=== PATIENT | female | born 1980 | race Caucasian/White ===

== ENCOUNTER → 2019-10-13 | Outpatient (CLI) | payer OTHER ==
--- NOTE | 2019-10-13 11:02 | MM ---
Reason for exam: screening (asymptomatic). Baseline mammogram. History: Family history of breast cancer in mother and breast cancer in maternal grandmother. Physical Findings: Nurse did not find any significant physical abnormalities on exam. MG 3D Screening Mammo W/Cad Bilateral CC and MLO view(s) were taken. The breast tissue is heterogeneously dense. This may lower the sensitivity of mammography. 1cm nodular asymmetry may persist on 3D images medial left breast. Other areas of asymmetric densities do not persist on 3D images. These results were verbally communicated with the patient and result sheet given to the patient on 10/13/19. ASSESSMENT: Incomplete: need additional imaging evaluation, BI-RAD 0 RECOMMENDATION: Ultrasound of the left breast. (medial 6-12 o'clock)
--- NOTE | 2019-10-13 11:04 | USB ---
Reason for exam: additional evaluation requested from abnormal screening. History: Family history of breast cancer in mother and breast cancer in maternal grandmother. Physical Findings: Breast exam preformed at baseline screening. US Breast Workup Limited LT Left limited breast ultrasound including focal area of concern, retroareolar and axilla demonstrates a 0.5 x 0.3 x 0.5cm mixed lesion at 7 o'clock, a 1.0 x 0.7 x 0.8cm cystic lesion at 8 o'clock, likely corresponds to the mammographic nodule and a 0.4 x 0.2 x 0.5cm cystic lesion at 8 o'clock. 1 year follow up recommended. Scanned 6-12 o'clock. These results were verbally communicated with the patient and result sheet given to the patient on 10/13/19. ASSESSMENT: Probably benign, BI-RAD 3 RECOMMENDATION: Follow-up diagnostic mammogram of both breasts in 1 year.
== END | disposition home or self-care (01) ==
LOC: RADMAMWWP 08:12
PROVIDERS: ATTEND Obstetrics & Gynecology
DX: Z12.31 Encounter for screening mammogram for malignant neoplasm of breast (principal); R91.8 Other nonspecific abnormal finding of lung field
CPT/HCPCS: 77063; 77067

== ENCOUNTER → 2020-11-23 | Outpatient (CLI) | payer OTHER ==
--- NOTE | 2020-11-23 08:43 | MM ---
Reason for exam: additional evaluation requested from abnormal screening. Last mammogram was performed 1 year and 1 month ago. History: Family history of breast cancer in mother and breast cancer in maternal grandmother. Physical Findings: Nurse did not find any significant physical abnormalities on exam. MG 3D Diag Mammo W/Cad STEFANIE Bilateral CC, MLO, and XCCL view(s) were taken. Prior study comparison: October 13, 2019, bilateral MG 3d screening mammo w/cad. The breast tissue is extremely dense which could obscure a lesion on mammography. No significant new findings when compared with previous films. These results were verbally communicated with the patient and result sheet given to the patient on 11/23/20. ASSESSMENT: Benign, BI-RAD 2 RECOMMENDATION: Routine screening mammogram of both breasts in 1 year.
== END | disposition home or self-care (01) ==
LOC: RADMAMWWP 07:01
PROVIDERS: ATTEND Obstetrics & Gynecology
DX: R92.8 Other abnormal and inconclusive findings on diagnostic imaging of breast (principal)
CPT/HCPCS: 77062; 77066

== ENCOUNTER → 2021-12-30 | Outpatient (CLI) | payer SELFPAY ==
--- NOTE | 2021-12-30 08:57 | MM ---
Reason for exam: clinical finding. Last mammogram was performed 1 year and 1 month ago. History: Family history of breast cancer in mother at age 64 and breast cancer in maternal grandmother at age 60. Indicated problem(s): palpable abnormality in the left breast. Physical Findings: Nurse Summary: 1cm nodule in the left breast at 1 and 2 o'clock (nurse mj). MG 3D Diag Mammo W/Cad STEFANIE Bilateral CC and MLO view(s) were taken. Prior study comparison: November 23, 2020, bilateral MG 3d diag mammo w/cad STEF[facility]IE. October 13, 2019, bilateral MG 3d screening mammo w/cad. The breast tissue is heterogeneously dense. This may lower the sensitivity of mammography. There is no discrete abnormality including area of concern. Ultrasound recommended. These results were verbally communicated with the patient and result sheet given to the patient on 12/30/21. ASSESSMENT: Incomplete: need additional imaging evaluation, BI-RAD 0 RECOMMENDATION: Ultrasound of the left breast. Manage patient on a clinical basis.
--- NOTE | 2021-12-30 08:59 | USB ---
Reason for exam: additional evaluation requested from abnormal screening. History: Family history of breast cancer in mother at age 64 and breast cancer in maternal grandmother at age 60. US Breast Limited LT Left limited breast ultrasound including focal area of concern, retroareolar and axilla demonstrates a 0.6 x 0.5 x 0.5cm cystic cluster at 2 o'clock and a 0.9 x 0.7 x 1.0cm cystic lesion at 2 o'clock. These results were verbally communicated with the patient and result sheet given to the patient on 12/30/21. ASSESSMENT: Benign, BI-RAD 2 RECOMMENDATION: Routine screening mammogram of both breasts in 1 year. Manage patient on a clinical basis.
== END | disposition home or self-care (01) ==
LOC: RADMAMWWP 07:30
PROVIDERS: ATTEND Obstetrics & Gynecology
DX: N63.0 Unspecified lump in unspecified breast (principal); Z80.3 Family history of malignant neoplasm of breast
CPT/HCPCS: 77062; 77066

== ENCOUNTER → 2023-02-07 | Outpatient (CLI) | payer BC ==
--- NOTE | 2023-02-07 18:25 | MM ---
Reason for Exam: Screening (asymptomatic). Last mammogram was performed 1 year(s) and 1 month(s) ago. Patient History: Menarche at age 14. First Full-Term at age 25. Premenopausal. Maternal grandmother had breast cancer, age 60. Mother had breast cancer, age 64. Last menstrual period: 01/23/2023 Risk Values: Shruthi 5 year model risk: 1.2%. NCI Lifetime model risk: 18.2%. Prior Study Comparison: 10/13/2019 Bilateral Screening Mammogram, [facility]. 11/23/2020 Bilateral Diagnostic Mammogram, [facility]. 12/30/2021 Bilateral Diagnostic Mammogram, [facility]. Tissue Density: The breast tissue is heterogeneously dense. This may lower the sensitivity of mammography. Findings: Analyzed By CAD. There is no suspicious group of microcalcifications or new suspicious mass in either breast. Overall Assessment: Negative, BI-RAD 1 Management: Screening Mammogram of both breasts in 1 year. 1. Patient should continue monthly self breast exams. 2. A clinical breast exam by your physician is recommended on an annual basis. 3. This exam should not preclude additional follow-up of suspicious palpable abnormalities. Electronically signed and approved by: Gorge Restrepo M.D. Radiologist
== END | disposition home or self-care (01) ==
LOC: RADMAMWWP 07:28
PROVIDERS: ATTEND Obstetrics & Gynecology
DX: Z12.31 Encounter for screening mammogram for malignant neoplasm of breast (principal); Z80.3 Family history of malignant neoplasm of breast
CPT/HCPCS: 77063; 77067

== ENCOUNTER → 2024-03-12 | Outpatient (CLI) | payer BC ==
--- NOTE | 2024-03-13 18:56 | MM ---
Reason for Exam: Screening (asymptomatic). Last mammogram was performed 1 year(s) and 1 month(s) ago. Patient History: Menarche at age 14. First Full-Term at age 25. Premenopausal. Maternal grandmother had breast cancer, age 60. Mother had breast cancer, age 64. Last menstrual period: 02/27/2024 Risk Values: Shruthi 5 year model risk: 1.3%. NCI Lifetime model risk: 18.0%. Prior Study Comparison: 11/23/2020 Bilateral Diagnostic Mammogram, [facility]. 12/30/2021 Bilateral Diagnostic Mammogram, [facility]. 02/07/2023 Bilateral MG 3D screening mammo w/cad, [facility]. Tissue Density: The breasts are heterogeneously dense, which may obscure small masses. Findings: Analyzed By CAD. Focal asymmetry posterior 12:00 left breast may represent superimposition shadow. It is more defined and further evaluation is recommended. Otherwise, no significant change. Overall Assessment: Incomplete: need additional imaging evaluation, BI-RAD 0 Management: Special View Mammogram of the left breast. Diagnostic Breast Ultrasound of the left breast. . [facility] will attempt to contact patient to return for supplemental views and ultrasound if indicated. Electronically signed and approved by: Gorge Restrepo M.D. Radiologist
== END | disposition home or self-care (01) ==
LOC: RADMAMWWP 06:54
PROVIDERS: ATTEND Obstetrics & Gynecology
DX: Z12.31 Encounter for screening mammogram for malignant neoplasm of breast (principal); Z80.3 Family history of malignant neoplasm of breast
CPT/HCPCS: 77063; 77067

== ENCOUNTER → 2024-03-18 | Outpatient (CLI) | payer BC ==
--- NOTE | 2024-03-18 10:31 | MM ---
Reason for Exam: Additional evaluation requested from prior study. Last screening mammogram was performed less than 1 month ago. Patient History: Menarche at age 14. First Full-Term at age 25. Premenopausal. Maternal grandmother had breast cancer, age 60. Mother had breast cancer, age 64. Risk Values: Shruthi 5 year model risk: 1.3%. NCI Lifetime model risk: 18.0%. Prior Study Comparison: 12/30/2021 Bilateral Diagnostic Mammogram, [facility]. 02/07/2023 Bilateral MG 3D screening mammo w/cad, [facility]. 03/12/2024 Bilateral MG 3D screening mammo w/cad, [facility]. Tissue Density: Left: The breasts are heterogeneously dense, which may obscure small masses. Findings: Analyzed By CAD. Persistent asymmetric density left 12:00 position 7.6 cm from the nipple measuring approximately 1.4 cm in length. Ultrasound recommended. No additional persistent areas of abnormal density. Overall Assessment: Incomplete: need additional imaging evaluation, BI-RAD 0 Management: Diagnostic Breast Ultrasound of the left breast. . Results were given to the patient verbally at the time of exam. Patient should continue monthly self-breast exams. A clinical breast exam by your physician is recommended on an annual basis. This exam should not preclude additional follow-up of suspicious palpable abnormalities. Note on Shruthi scores and lifetime risk: 1. A Shruthi score greater than 3% is considered moderate risk. If this is the case, consider specialist referral to assess eligibility for a risk reducing agent. 2. If overall lifetime risk for the development of breast cancer is 20% or higher, the patient may qualify for future screening with alternating mammogram and breast MRI. Electronically signed and approved by: Christiano Thapa M.D. Radiologis
--- NOTE | 2024-03-18 10:55 | USB ---
Reason for Exam: Additional evaluation requested from abnormal screening. Patient History: Menarche at age 14. First Full-Term at age 25. Premenopausal. Maternal grandmother had breast cancer, age 60. Mother had breast cancer, age 64. Risk Values: Shruthi 5 year model risk: 1.3%. NCI Lifetime model risk: 18.0%. Technique: Method: Targeted. Prior Study Comparison: 12/30/2021 Bilateral Diagnostic Mammogram, [facility]. 02/07/2023 Bilateral MG 3D screening mammo w/cad, [facility]. 03/12/2024 Bilateral MG 3D screening mammo w/cad, [facility]. Findings: The upper section of the breast of the left breast, the axilla of the left breast and the retroareolar of the left breast were scanned. Electronically signed and approved by: Christiano Thapa M.D. Radiologis
== END | disposition home or self-care (01) ==
LOC: RADMAMWWP 10:03
PROVIDERS: ATTEND Obstetrics & Gynecology
DX: N60.02 Solitary cyst of left breast (principal); R92.332 Mammographic heterogeneous density, left breast; Z80.3 Family history of malignant neoplasm of breast
CPT/HCPCS: 77061; 77065

== ENCOUNTER → 2024-11-14 | Outpatient (CLI) | payer BC ==
--- NOTE | 2024-11-14 08:26 | MM ---
Reason for Exam: Additional evaluation requested from abnormal screening. Last screening mammogram was performed 8 month(s) ago. Patient History: Menarche at age 14. First Full-Term at age 25. Premenopausal. Maternal grandmother had breast cancer, age 60. Mother had breast cancer, age 64. Last menstrual period: 09/03/2024 Risk Values: Shruthi 5 year model risk: 1.4%. NCI Lifetime model risk: 17.9%. Prior Study Comparison: 02/07/2023 Bilateral MG 3D screening mammo w/cad, [facility]. 03/12/2024 Bilateral MG 3D screening mammo w/cad, [facility]. 03/18/2024 Left MG 3D work up w/cad , [facility]. Tissue Density: Left: The breasts are heterogeneously dense, which may obscure small masses. Findings: Analyzed By CAD. Stable nodularity as seen previously. Ultrasound recommended. No new masses. No suspicious microcalcifications. Overall Assessment: Incomplete: need additional imaging evaluation, BI-RAD 0 Management: Diagnostic Breast Ultrasound of the left breast. . Results were given to the patient verbally at the time of exam. Patient should continue monthly self-breast exams. A clinical breast exam by your physician is recommended on an annual basis. This exam should not preclude additional follow-up of suspicious palpable abnormalities. Note on Shruthi scores and lifetime risk: 1. A Shruthi score greater than 3% is considered moderate risk. If this is the case, consider specialist referral to assess eligibility for a risk reducing agent. 2. If overall lifetime risk for the development of breast cancer is 20% or higher, the patient may qualify for future screening with alternating mammogram and breast MRI. [facility], , 11/14/2024 8:22 AM. Electronically signed and approved by: Christiano Thapa M.D. Radiologis
--- NOTE | 2024-11-14 08:39 | USB ---
Reason for Exam: Follow-up at short interval from prior study. Patient History: Menarche at age 14. First Full-Term at age 25. Premenopausal. Maternal grandmother had breast cancer, age 60. Mother had breast cancer, age 64. Risk Values: Shruthi 5 year model risk: 1.4%. NCI Lifetime model risk: 17.9%. Technique: Method: Targeted. Prior Study Comparison: 02/07/2023 Bilateral MG 3D screening mammo w/cad, [facility]. 03/12/2024 Bilateral MG 3D screening mammo w/cad, [facility]. 03/18/2024 Left MG 3D work up w/cad , [facility]. Findings: The upper section of the breast of the left breast, the axilla of the left breast and the retroareolar of the left breast were scanned. Complex cystic lesion left retroareolar region measuring 0.0 x 0.4 cm is unchanged. Additional simple cyst left breast 12:00 position 8 cm from the nipple measures 5 x 3 mm and is also stable. No new lesions identified. Continued follow-up advised. Overall Assessment: Probably benign, BI-RAD 3 Management: Diagnostic Breast Ultrasound of the left breast in 6 months. A clinical breast exam by your physician is recommended on an annual basis and results should be correlated with mammographic findings. This exam should not preclude additional follow-up of suspicious palpable abnormalities. Results were given to the patient verbally at the time of exam. [facility], , 11/14/2024 8:35 AM. Electronically signed and approved by: Christiano Thapa M.D. Radiologis
== END | disposition home or self-care (01) ==
LOC: RADMAMWWP 07:31
PROVIDERS: ATTEND Obstetrics & Gynecology
DX: R92.8 Other abnormal and inconclusive findings on diagnostic imaging of breast (principal); Z80.3 Family history of malignant neoplasm of breast; R92.332 Mammographic heterogeneous density, left breast
CPT/HCPCS: 77061; 77065

== ENCOUNTER → 2025-06-05 | Outpatient (CLI) | payer OTHER ==
--- NOTE | 2025-06-05 07:52 | MM ---
Reason for Exam: Follow-up at short interval from prior study. Last mammogram was performed 1 year(s) and 3 month(s) ago. Patient History: Menarche at age 14. First Full-Term at age 25. Premenopausal. Maternal grandmother had breast cancer, age 60. Mother had breast cancer, age 64. Risk Values: Shruthi 5 year model risk: 1.4%. NCI Lifetime model risk: 17.9%. Tissue Density: The breasts are heterogeneously dense, which may obscure small masses. Findings: Analyzed By CAD. A few tiny benign-appearing punctate calculations medially in the left breast are redemonstrated. No suspicious new mass or distortion in either breast. Overall Assessment: Negative, BI-RAD 1 Management: Screening Mammogram of both breasts in 1 year. Some Advise annual bilateral breast ultrasound surveillance in patients with background dense tissue. Results were given to the patient verbally at the time of exam. Patient should continue monthly self-breast exams. A clinical breast exam by your physician is recommended on an annual basis. This exam should not preclude additional follow-up of suspicious palpable abnormalities. Note on Shruthi scores and lifetime risk: 1. A Shruthi score greater than 3% is considered moderate risk. If this is the case, consider specialist referral to assess eligibility for a risk reducing agent. 2. If overall lifetime risk for the development of breast cancer is 20% or higher, the patient may qualify for future screening with alternating mammogram and breast MRI. [facility], , 06/05/2025 7:49 AM. Electronically signed and approved by: Jasper Beasley M.D.
--- NOTE | 2025-06-05 08:15 | USB ---
Reason for Exam: Follow-up at short interval from prior study. Patient History: Menarche at age 14. First Full-Term at age 25. Premenopausal. Patient tested for BRCA1 outcome was negative. Currently using Hormonal Contraceptives, starting at age 43. Maternal grandmother had breast cancer, age 60. Mother had breast cancer, age 64. Risk Values: Shruthi 5 year model risk: 1.4%. NCI Lifetime model risk: 17.9%. Technique: Method: Targeted. Prior Study Comparison: 03/12/2024 Bilateral MG 3D screening mammo w/cad, [facility]. 03/18/2024 Left MG 3D work up w/cad LT, [facility]. 11/14/2024 Left MG 3D diag mammo w/cad LT, [facility]. Findings: The upper section of the breast of the left breast, the axilla of the left breast and the retroareolar of the left breast were scanned. Targeted ultrasound. The 2 small thin-walled cysts at 12:00 position on prior study are not identified on current study . The left nipple there is persistent oval circumscribed 8 x 4 x 9 mm hypoechoic lesion possible solid mass that is unchanged in size and appearance from prior ultrasound. No suspicious new solid or cystic masses are identified. No concerning left axillary adenopathy. Overall Assessment: Benign, BI-RAD 2 Management: Screening Mammogram of both breasts in 1 year. Return to routine follow-up. A clinical breast exam by your physician is recommended on an annual basis and results should be correlated with mammographic findings. This exam should not preclude additional follow-up of suspicious palpable abnormalities. Results were given to the patient verbally at the time of exam. [facility], , 06/05/2025 8:12 AM. Electronically signed and approved by: Jasper Beasley M.D.
== END | disposition home or self-care (01) ==
LOC: RADMAMWWP 07:27
PROVIDERS: ATTEND Obstetrics & Gynecology
DX: R92.8 Other abnormal and inconclusive findings on diagnostic imaging of breast (principal); R92.333 Mammographic heterogeneous density, bilateral breasts; Z80.3 Family history of malignant neoplasm of breast; Z92.0 Personal history of contraception
CPT/HCPCS: 77062; 77066